=== PATIENT | female | born 2000 | race Caucasian/White ===

== ENCOUNTER 2018-10-18 02:18 | Emergency (ER) | payer MEDICAID ==
[~2018-10-18] VITALS: Ht 170.2 cm; Wt 73.1 kg
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
--- NOTE | 2018-10-18 02:38 | NUR ---
Provider at bedside to eval.
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
--- NOTE | 2018-10-18 03:15 | NUR ---
[facility] at bedside to take report.
[2018-10-18 04:05] VITALS: BP 117/59
--- NOTE | 2018-10-18 04:05 | NUR ---
Pt states she has to use restroom. UA collected. Awaiting POC from officer. Interviews of pt and friends still in progress.
--- NOTE | 2018-10-18 04:31 | NUR ---
Per [facility], pt to go to [facility] for exam. PT denies any further medical complaint and will be d/c.
== END 2018-10-18 05:08 | disposition home or self-care (01) ==
LOC: ED 04:50
DX: T74.21XA Adult sexual abuse, confirmed, initial encounter (principal)
CPT/HCPCS: 99283